=== PATIENT | female | born 1980 | race Caucasian/White ===

== ENCOUNTER 2022-03-28 04:57 | Outpatient (CLI) | payer MEDICARE, MEDICAID, SELFPAY | END 2022-03-28 04:58 | disposition home or self-care (01) | LOC: AMB 04-08 14:44 | PROVIDERS: Visit Provider Family Medicine | DX: R07.89 Other chest pain (principal) | CPT/HCPCS: A0425; A0427 ==

== ENCOUNTER 2022-03-28 05:24 | Emergency (ER) | payer MEDICARE, MEDICAID, SELFPAY ==
[2022-03-28 05:33] VITALS: BP 138/99; PULSE 108; RESP 20; TEMP 36.7; O2SAT 99
[2022-03-28 05:55] LABS: Appearance Urine Clear (Clear); Bilirubin Urine Negative (Negative); Blood Urine 3+ (Negative); Color Urine Yellow (Yellow); Glucose Urine Negative (Negative); Ketones Urine Negative (Negative); Leukocyte Esterase Urine 1+ (Negative); Nitrite Urine Negative (Negative); Protein Urine Negative (Negative); Specific Gravity Urine <= 1.005 (1.000-1.030); Urobilinogen Urine 0.2 (0.2-1.0)
[2022-03-28 06:03] LABS: Amphetamine Screen Urine Negative (Negative); Barbiturate Screen Urine Negative (Negative); Benzodiazepines Screen Urine Negative (Negative); Cannabinoid Screen Urine Negative (Negative); Cocaine Screen Urine Negative (Negative); Methadone Screen Urine Negative (Negative); Methamphetamines Screen Urine Negative (Negative); Opiate Screen Urine Negative (Negative); Oxycodone Screen Urine Negative (Negative); Phencyclidine Screen Urine Negative (Negative); Tricyclic Antidepressant Urine Negative (Negative)
[2022-03-28 06:04] LABS: RBC Urine 0-2 (0-2)
[2022-03-28 06:05] LABS: Squamous Epithelial Cell Urine Few (None-Few); Ur HCG Qualitative* Negative (Negative)
--- NOTE | 2022-03-28 06:13 | ED.PSYCH ---
HPI - Psych General Chief Complaint: Psychiatric Problem/Disorder Stated Complaint: Mental health Time Seen by Provider: 03/28/22 05:42 Source: patient and EMS Mode of arrival: EMS History of Present Illness HPI Narrative: 42-year-old female with a notable history of bipolar disorder presents to the emergency department with chest pain and anxiety. Patient denies any prior cardiac history. She states that she has had increased stress at home for the last couple of months. It sounds like she was hospitalized for mental health issues from mid December to january, released on February 04. Since then, she has been living with her mother and stepfather, sounds like in [place]. She is not able to give me specific diagnoses nor details of her hospitalization but rather rambles on about non pertinent details like how she took a lift home from the hospital as no in could pick her up and extensive detail of being bullied by the nurses on different units. She does not discuss the medical treatment adequately for me to understand. Sounds as though her family was concerned and called the ambulance because she has not been sleeping and she has been more irritable. They think she is ?having a crisis?. It sounds like she was diagnosed with schizoaffective disorder in her 20s, bipolar disorder at age 16, she has been hospitalized multiple times. This appears to be her 1st time here. She denies any suicidality rather stating she is ?full of aureliano?. She is not currently working with a therapist. She is currently taking a mood stabilizer and antipsychotic. It sounds as though her next upcoming psychiatric appointment is in January of 2023. Per her description, several providers have quit the office that she was formally evaluated. She denies any suicidal homicidal thoughts. She does have a history of prior suicide attempts in her teens and 20s from taking pills though she does not give details on this very well for me but instead strains the conversation very quickly and circumstantial E into other incredibly non pertinent things. She reports that she started having chest pain while she was having an argument with her mother. The chest pain is getting markedly better now, she denies anxiety currently. She says they have been fighting and she is like they do not value her. They are on grateful. It sounds like she is living off of them and not contributing. She does not work outside the home. 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 It sounds like she is living in the basement of her mother's home loud it strange hours. Patient complains that her mother is a light sleeper and the patient wakes her frequently, leading to more fights. When I ask about relationships, patient states that she is in a relationship but interestingly has not seen this person since discharge as he is ?always busy?. She then states that this man ?saved her life?. Under other delusional. She adamantly denies any alcohol or drug use. She does not think that she needs hospitalization at this time. When I bring up to her that she is showing features of hypomania, she seems surprised by this. She states that she does take her medications every day, but on specific questioning it sounds like she takes them whenever she feels like it which can be at very times of the day and based on her description I am not confident of her regular use of them. Past medical history she reports a history of COPD she continues to smoke. Does confess to schizoaffective disorder and bipolar disorder. As far as meds go she says that she takes Lamictal 200 mg once daily and Geodon 160 mg daily. Denies any other medications. Socially does smoke, sounds like she rolls her own tobacco. No other drugs. No pertinent travel. Family history patient reports that mother has depression though untreated. ROS is negative times 12 systems with the exception of the chest pain as stated above. Does not seem to have insight into her mental health issues. Related Data Home Medications Medication Instructions Recorded Confirmed acetaminophen 650 mg 650 mg PO Q8H PRN 03/28/22 03/28/22 tablet,extended release (8 Hour Pain Reliever) esomeprazole magnesium 20 mg 20 mg PO DAILY 03/28/22 03/28/22 capsule,delayed release lamotrigine 100 mg tablet 100 mg PO BID 03/28/22 03/28/22 (Lamictal) ziprasidone HCl 80 mg capsule 80 mg PO BID 03/28/22 03/28/22 (Geodon) [facility] Medical History (Updated 03/28/22 @ 08:41 by Katja Collins MD) Schizoaffective disorder Social History Smoking Status: Current every day smoker What tobacco products do you use: cigarettes Do you use any of these nicotine containing products: None Second hand tobacco smoke exposure: Yes How often do you have a drink containing alcohol: monthly or less AUDIT-C Alcohol total score: 1 Non-prescribed substance use: denies use service: No Exam Const: Vital Signs, click to edit/add: Vital Signs - 24 hr 03/28/22 05:33 Temperature 98.0 F Pulse Rate [Left P ulse Oximeter] 108 H Respiratory Rate 20 Blood Pressure [Ri ght Upper Arm] 138/99 H Pulse Oximetry 99 Oxygen Delivery Me thod Room Air Documenting provider has reviewed patient's vital signs: yes Common normals: alert Orientation/consciousness: Yes awake, Yes oriented to person, Yes oriented to place and Yes oriented to time Other: Very talkative, circumstantial. Appears moderately groomed. Makes good eye contact. HENMT: Common normals: normocephalic Head and scalp: normocephalic Face and sinus: normal facial exam Mouth: oral and palatal mucosa normal Throat: posterior oropharynx normal Eye: Common normals: conjunctivae normal and no scleral icterus Conjunctiva: conjunctiva(e) normal Neck & C-Spine: Common normals: full ROM, no lymphadenopathy and thyroid normal Thyroid: thyroid normal Resp: Common normals: normal respiratory effort, no use of accessory muscles and clear to auscultation bilaterally Effort & inspection: able to speak in complete sentences Auscultation: clear to auscultation bilaterally Cardio: Common normals: regular rate, regular rhythm, S1 normal heart sound, S2 normal heart sound, no murmurs and peripheral pulses 2+ throughout Rate: regular rate Rhythm: regular rhythm Heart sounds: S1 normal and S2 normal Peripheral pulses: pulses 2+ throughout GI: Common normals: Normal to inspection, nondistended, normoactive bowel sounds present Back & Pelvis: Common normals: thoracic and lumbar spine normal to inspection Extremity: Common normals: normal to inspection, full ROM and no pedal edema Neuro: Sensorium/orientation: awake, alert, oriented to person, oriented to place and oriented to time Motor exam: no tremor noted and no movement abnormalities noted Psych: Activity/motor behavior: psychomotor agitation, fidgeting, hyperactive and disorganized Speech: excessive Mood and affect: elevated mood Thought process: circumstantial and disorganized Thought content: no suicidality and no homicidality Insight: poor Judgement: limited Skin: Common normals: no rashes or lesions noted and no wounds General skin exam: no rashes or lesions noted Course Course Hospital Course: Patient had a DEC assessment, who I spoke to afterwards. Per DEC patient is okay to discharge home. There is no concern for self-harm or harm of others. They have been able to safety contract and get her some outpatient medical management. Patient will be discharged home to the care of her mother. Vital Signs Vital signs: Initial Vital Signs Temperature 98.0 F 03/28/22 05:33 Temperature Source Temporal Artery Scan 03/28/22 05:33 Pulse Rate 108 H 03/28/22 05:33 Pulse Rhythm 03/28/22 05:33 Respiratory Rate 20 03/28/22 05:33 Blood Pressure 138/99 H 03/28/22 05:33 Blood Pressure Mean 112 03/28/22 05:33 Blood Pressure Position Semi-Fowlers 03/28/22 05:33 Pulse Oximetry 99 03/28/22 05:33 Oxygen Delivery Method 03/28/22 05:33 Vital Signs Temperature 98.0 F 03/28/22 05:33 Pulse Rate 108 H 03/28/22 05:33 Respiratory Rate 20 03/28/22 05:33 Blood Pressure 138/99 H 03/28/22 05:33 Pulse Oximetry 99 03/28/22 05:33 Oxygen Delivery Method 03/28/22 05:33 Temperature 98.0 F 03/28/22 05:33 Pulse Rate 108 H 03/28/22 05:33 Respiratory Rate 20 03/28/22 05:33 Blood Pressure 138/99 H 03/28/22 05:33 Pulse Oximetry 99 03/28/22 05:33 Oxygen Delivery Method 03/28/22 05:33 MDM - Psych MDM Narrative Medical decision making narrative: Seems to be exhibiting hypomania. Cooperative with exam thus far. I am not detecting that she is at significant risk of self-harm but I do have concerns. Laboratory studies to look for thyroid disease, anemia, kidney function, electrolytes toxicologies. Telehealth psychiatric assessment. Awaiting their recommendations to see if she would benefit from further hospitalization. Spoke with Paola from [facility] prior to her assessment of patient. She confirmed the patient has a history of bipolar, schizoaffective. She arms recent hospitalization and patient has extensive psychiatric history. Will perform assessment. I let Paola know that at this point she is not threatening any harm to self or others. All of her basic needs are met and she does seem to be at least sporadically taking her medications. I do not think that she is holdable. Awaiting input from her team. Lab Data Attestation: I reviewed the patient's lab results. Labs: Lab Results 03/28/22 03/28/22 03/28/22 Range/Units 05:45 05:45 06:25 WBC (4.50-11.00) K/uL RBC (4.00-5.20) m/uL Hgb (12.0-16.0) gm/dL Hct (33.0-51.0) % MCV (80-100) fL MCH (26-34) pg MCHC (32-36) gm/dL RDW Coeff of Naresh (11.5-15.5) % Plt Count (140-440) K/uL Neut % (Auto) (42.0-72.0) % Lymph % (Auto) (20-44) % [place] % (Auto) (0.0-11.0) % Eos % (Auto) (0.0-7.0) % Baso % (Auto) (0.0-3.0) % Neut # (Auto) (1.7-7.0) K/uL Lymph # (Auto) (0.90-2.90) K/uL [place] # (Auto) (0.00-0.90) K/UL Eos # (Auto) (0.00-0.50) K/uL Baso # (Auto) (0.00-0.30) K/uL Abs Immat Gran (auto) (0.00-0.30) K/uL Imm/Tot Granulo (auto) % Sodium (135-149) mmol/L Potassium (3.6-5.1) mmol/L Chloride (96-114) mmol/L Carbon Dioxide (20-32) mmol/L BUN (5-24) mg/dL Creatinine (0.5-1.5) mg/dL Estimated GFR ml/min Glucose (60-115) mg/dL Calcium (8.4-10.6) mg/dL Troponin I (0.01-0.04) ng/mL TSH (0.270-4.200) uIU/mL Urine Color Yellow (Yellow) Urine Appearance Clear (Clear) Urine pH 6.0 (5.0-8.5) Ur Specific [place] <= 1.005 (1.000-1.030) Urine Protein Negative (Negative) Urine Glucose (UA) Negative (Negative) Urine Ketones Negative (Negative) Urine Blood 3+ A (Negative) Urine Nitrite Negative (Negative) Urine Bilirubin Negative (Negative) Urine Urobilinogen 0.2 (0.2-1.0) Ur Leukocyte Esterase 1+ A (Negative) Urine RBC 0-2 (0-2) Urine WBC 2-5 (0-5) Ur Squamous Epith Cells Few (None-Few) Urine Bacteria None (None) Urine HCG, Qual Negative (Negative) Salicylates (1.0-10) mg/dL Urine Opiates Screen Negative (Negative) Ur Oxycodone Screen Negative (Negative) Urine Methadone Screen Negative (Negative) Ur Propoxyphene Screen Negative (Negative) Acetaminophen (10.0-30.0) ug/mL Ur Barbiturates Screen Negative (Negative) U Tricyclic Antidepress Negative (Negative) Ur Phencyclidine Scrn Negative (Negative) Ur Amphetamines Screen Negative (Negative) U Methamphetamines Scrn Negative (Negative) U Benzodiazepines Scrn Negative (Negative) Urine Cocaine Screen Negative (Negative) U Marijuana (THC) Screen Negative (Negative) Ur Drug Screen Comment See Note Ethyl Alcohol (0.01-0.03) % SARS-CoV-2 (PCR) Negative SARS-CoV-2 (Negative) 03/28/22 03/28/22 03/28/22 Range/Units 06:25 06:38 06:38 WBC 5.10 (4.50-11.00) K/uL RBC 4.28 (4.00-5.20) m/uL Hgb 12.8 (12.0-16.0) gm/dL Hct 38.9 (33.0-51.0) % MCV 91 (80-100) fL MCH 30 (26-34) pg MCHC 33 (32-36) gm/dL RDW Coeff of Naresh 12.9 (11.5-15.5) % Plt Count 299 (140-440) K/uL Neut % (Auto) 70.2 (42.0-72.0) % Lymph % (Auto) 19.8 L (20-44) % [place] % (Auto) 7.6 (0.0-11.0) % Eos % (Auto) 1.2 (0.0-7.0) % Baso % (Auto) 1.0 (0.0-3.0) % Neut # (Auto) 3.58 (1.7-7.0) K/uL Lymph # (Auto) 1.00 (0.90-2.90) K/uL [place] # (Auto) 0.40 (0.00-0.90) K/UL Eos # (Auto) 0.06 (0.00-0.50) K/uL Baso # (Auto) 0.05 (0.00-0.30) K/uL Abs Immat Gran (auto) 0.01 (0.00-0.30) K/uL Imm/Tot Granulo (auto) 0.2 % Sodium 139 (135-149) mmol/L Potassium 4.3 (3.6-5.1) mmol/L Chloride 105 (96-114) mmol/L Carbon Dioxide 25 (20-32) mmol/L BUN 9 (5-24) mg/dL Creatinine 0.6 (0.5-1.5) mg/dL Estimated GFR 116 ml/min Glucose 118 H (60-115) mg/dL Calcium 9.4 (8.4-10.6) mg/dL Troponin I < 0.01 L (0.01-0.04) ng/mL TSH 1.720 (0.270-4.200) uIU/mL Urine Color (Yellow) Urine Appearance (Clear) Urine pH (5.0-8.5) Ur Specific [place] (1.000-1.030) Urine Protein (Negative) Urine Glucose (UA) (Negative) Urine Ketones (Negative) Urine Blood (Negative) Urine Nitrite (Negative) Urine Bilirubin (Negative) Urine Urobilinogen (0.2-1.0) Ur Leukocyte Esterase (Negative) Urine RBC (0-2) Urine WBC (0-5) Ur Squamous Epith Cells (None-Few) Urine Bacteria (None) Urine HCG, Qual (Negative) Salicylates < 1.0 L (1.0-10) mg/dL Urine Opiates Screen (Negative) Ur Oxycodone Screen (Negative) Urine Methadone Screen (Negative) Ur Propoxyphene Screen (Negative) Acetaminophen < 10.0 L (10.0-30.0) ug/mL Ur Barbiturates Screen (Negative) U Tricyclic Antidepress (Negative) Ur Phencyclidine Scrn (Negative) Ur Amphetamines Screen (Negative) U Methamphetamines Scrn (Negative) U Benzodiazepines Scrn (Negative) Urine Cocaine Screen (Negative) U Marijuana (THC) Screen (Negative) Ur Drug Screen Comment Ethyl Alcohol < 0.01 L (0.01-0.03) % SARS-CoV-2 (PCR) (Negative) ECG Data Attestation: I personally reviewed and interpreted this ECG as follows: Interpretation: Normal sinus rhythm, normal rate. No significant ST or T-wave abnormalities. Good R-wave progression. Normal axis, No prior comparison. Discharge Plan Discharge Clinical Impression: Bipolar I disorder with yoon Patient Disposition: Home w/ Parent or Adult Condition: Stable Additional Instructions: Per MAR Prescriptions: No Action lamotrigine [Lamictal] 100 mg tablet 100 mg PO BID ziprasidone HCl [Geodon] 80 mg capsule 80 mg PO BID Rx Instructions: give with food (meal/snack) acetaminophen [8 Hour Pain Reliever] 650 mg tablet extended release 650 mg PO Q8H PRN esomeprazole magnesium 20 mg capsule,delayed release(DR/EC) 20 mg PO DAILY Follow Up/Referrals: Provider,Not a Local [Primary Care Provider] - Stand Alone Forms: [facility] Info Instructions
[2022-03-28 06:40] LABS: Basophils Absolute Auto 0.05 K/uL (0.00-0.30); Eosinophils Absolute Auto 0.06 K/uL (0.00-0.50); Eosinophils Percent Auto 1.2 % (0.0-7.0); Hematocrit 38.9 % (33.0-51.0); Hemoglobin* 12.8 gm/dL (12.0-16.0); Immature Granulocytes Abs Auto 0.01 K/uL (0.00-0.30); Immature Granulocytes Pct Auto 0.2 %; Lymphocytes Percent Auto 19.8 % (20-44); Mean Corpuscular HGB Conc 33 gm/dL (32-36); Mean Corpuscular Hemoglobin 30 pg (26-34); Mean Corpuscular Volume 91 fL (80-100); Monocytes Percent Auto 7.6 % (0.0-11.0); Neutrophils Absolute Auto 3.58 K/uL (1.7-7.0); Neutrophils Percent Auto 70.2 % (42.0-72.0); Platelet Count* 299 K/uL (140-440); RDW Coefficient of Variation % 12.9 % (11.5-15.5); Red Blood Count 4.28 m/uL (4.00-5.20)
[2022-03-28 06:43] LABS: Slide Review Reflex No
[2022-03-28 07:02] LABS: Chloride* 105 mmol/L (96-114)
[2022-03-28 07:03] LABS: Potassium* 4.3 mmol/L (3.6-5.1); Sodium* 139 mmol/L (135-149)
[2022-03-28 07:05] LABS: Carbon Dioxide* 25 mmol/L (20-32); Creatinine* 0.6 mg/dL (0.5-1.5); Estimated Glomerular Filt Rate 116 ml/min
[2022-03-28 07:06] LABS: Blood Urea Nitrogen* 9 mg/dL (5-24); Calcium* 9.4 mg/dL (8.4-10.6); Glucose* 118 mg/dL (60-115)
[2022-03-28 07:07] LABS: Acetaminophen* < 10.0 ug/mL (10.0-30.0); Ethanol* < 0.01 % (0.01-0.03); Salicylate* < 1.0 mg/dL (1.0-10)
[2022-03-28 07:08] LABS: SARS PCR* Negative SARS-CoV-2 (Negative)
[2022-03-28 08:43] LABS: Troponin I* < 0.01 ng/mL (0.01-0.04)
== END 2022-03-28 08:56 | disposition home or self-care (01) ==
PROVIDERS: Family Medicine; Emergency Provider Family Medicine
DX: F31.2 Bipolar disorder, current episode manic severe with psychotic features (principal)
CPT/HCPCS: 36415; 80048; 80143; 80179; 80306; 81001; 81025; 82077; 84443; 84484; 85025; 87635; 93005; 99283; 99284